=== PATIENT | female | born 1940 | race American Indian/Alaskan Native ===

== ENCOUNTER 2019-09-17 08:16 | Outpatient (CLI) | payer MEDICARE ==
--- NOTE | 2019-09-17 11:26 | Magnetic Resonance Report ---
BILATERAL BREAST MRI WITH AND WITHOUT CONTRAST CLINICAL INFORMATION/INDICATION: Left breast cancer. TECHNICAL: Coronal STIR, axial T1 and T2-weighted fat sat images were obtained precontrast. 18 cc Mul tiHance contrast was injected intravenously and serial axial T1 weighted images with fat saturation w ere obtained. 3-D MIP projections, kinetic analysis and subtraction imaging was utilized to evaluate. A dedicated 8-channel breast coil was used for image acquisition. COMPARISON: 07/28/2019, 07/21/2019 FINDINGS: Right breast: Scattered fibroglandular tissue is noted with moderate background parenchymal enhanceme nt. No mass, suspicious focus of enhancement, lymphadenopathy or other significant abnormality is see n. Left breast: Scattered fibroglandular tissue is noted with moderate background parenchymal enhancemen t. The previously biopsied mass in the 5:00 position measures 1.3 x 1.2 cm and is located 0.6 cm from the nearest lateral skin surface, 3.5 cm from the chest wall and approximately 5 cm from the nipple. No other suspicious mass or focus of enhancement is identified. No axillary nodes measuring greater than 1 cm in short axis dimension are identified. All of the visualized nodes have expected shape and appearance. Additional findings: No distinct metastatic disease. IMPRESSION: Previously biopsied left breast cancer as above without additional sites of malignancy in the left br east or in the right breast. Follow up recommendation: Surgical consult BI-RADS Category 6: Known Biopsy-Proven Malignancy. Signer Name: Alex Gay MD Signed: 09/17/2019 11:22 AM Workstation Name: [id number]
== END 2019-09-17 08:17 | disposition home or self-care (01) ==
LOC: SPVWC 08:16
PROVIDERS: ATTEND Surgery
DX: C50.512 Malignant neoplasm of lower-outer quadrant of left female breast (principal)
CPT/HCPCS: A9577; C8908; 77049

== ENCOUNTER 2019-10-02 10:35 | Outpatient (CLI) | payer MEDICARE | END 2019-10-02 10:36 | disposition home or self-care (01) | LOC: SPVWC 10:35 | PROVIDERS: ATTEND Internal Medicine Hematology & Oncology | DX: M81.0 Age-related osteoporosis without current pathological fracture (principal); C50.512 Malignant neoplasm of lower-outer quadrant of left female breast; E55.9 Vitamin D deficiency, unspecified | CPT/HCPCS: 77080 ==

== ENCOUNTER 2019-10-22 06:12 | Day surgery (SDC) | payer MEDICARE ==
[~2019-10-22 06:12] MED LIST: ceFAZolin/Water 2 GM/20 ML 2 GM/20 ML SYRINGE IV NR
[2019-10-22] MEDS ORDERED: propofoL 200 MG/20 ML VIAL IV ONE (07:23)
[2019-10-22] MEDS ORDERED: HYDROmorphone 1 MG/1 ML INJ ONE (07:23)
[2019-10-22] MEDS ORDERED: LIDOCAINE MPF (2%) 20 MG/1 ML VIAL 5 ML ONE (07:23)
[2019-10-22] MEDS ORDERED: LACTATED RINGERS 1,000 ML ONE (07:30)
[2019-10-22] MEDS ORDERED: BACTERIOSTATIC SODIUM CHLORIDE 0.9% 30 ML VIAL INFILTRATI ONE (07:30)
[2019-10-22] MEDS ORDERED: MAGNESIUM OXIDE 400 MG TAB PO NR (07:31)
[2019-10-22] MEDS ORDERED: ACETAMINOPHEN 325 MG TAB PO NR (07:31)
[2019-10-22] MEDS ORDERED: fentaNYL 100 MCG/2 ML INJ IV NR (07:31)
[2019-10-22] MEDS ORDERED: ONDANSETRON 4 MG/2 ML INJ IV PRN (07:31)
[2019-10-22] MEDS ORDERED: HYDROmorphone 1 MG/1 ML INJ IV PRN ×2 (07:31)
[2019-10-22] MEDS ORDERED: INSULIN REGULAR, HUMAN 100 UNIT/ML 3ML VIAL SUB-Q NR (07:34)
--- NOTE | 2019-10-22 07:34 | Anesthesia Day of Surgery ---
Anesthesia Day of Surgery - Day of Surgery Patient Examined: Yes Patient H&P Reviewed: Yes Patient is NPO: Yes
--- NOTE | 2019-10-22 07:36 | Anesthesia Consultation ---
Anesthesia Consult and Med Hx Date of service: 10/22/19 - Airway Anesthetic Teeth Evaluation: Dentures, Edentulous ROM Head & Neck: Adequate Mental/Hyoid Distance: Adequate Mallampati Class: Class II Intubation Access Assessment: Probably Good - Pre-Operative Health Status ASA Pre-Surgery Classification: ASA2 Proposed Anesthetic Plan: General Nerve Block: ES/PEC - Pulmonary Hx Smoking: Yes (QUIT OVER 10YRS AGO) Hx Respiratory Symptoms: No (+2FS) - Cardiovascular System Hx Hypertension: Yes (2009) - Central Nervous System Hx Neuromuscular Disorder: Yes (Neuropathy L hand) Hx Psychiatric Problems: No - Endocrine Hx Insulin Dependent Diabetes: Yes - Other Systems Hx Alcohol Use: No Hx Substance Use: No
[2019-10-22] MEDS ORDERED: BUPIVACAINE-EPINEPHRINE/PF 0.25%-1:200,000 (30 ML) VIAL INFILTRATI ONE (07:40)
[2019-10-22] MEDS ORDERED: INSULIN REGULAR, HUMAN 100 UNIT/ML 3ML VIAL ONE (07:42)
[2019-10-22] MEDS ORDERED: SODIUM CHLORIDE P/F VIAL 10 ML 10 ML ONE (07:46)
[2019-10-22] MEDS ORDERED: METHYLENE BLUE 50 MG/10 ML AMP ONE (07:46)
[2019-10-22] MEDS ORDERED: LACTATED RINGERS 1,000 ML IV SCH (08:00)
[2019-10-22] MEDS ORDERED: CELECOXIB 200 MG CAP PO NR (08:00)
[2019-10-22] MEDS ORDERED: MIDAZOLAM 2 MG/2 ML INJ IV NR (08:00)
[2019-10-22] MEDS ORDERED: WATER FOR IRRIG STERILE 1,500 ML BOTTLE IR ONE (09:21)
[2019-10-22] MEDS ORDERED: ONDANSETRON 4 MG/2 ML INJ ONE (10:18)
--- NOTE | 2019-10-22 10:41 | Operative Report ---
Operative Report Operative Report: Operative Report: October 22, 2019 Preoperative diagnosis: Left breast cancer of the lower outer quadrant Postoperative diagnosis: Same Procedure: Left needle localization partial mastectomy of the lower outer quadrant and SLNB Surgeon: Maria Elena Newman MD Anesthesia: General Findings: Left breast mass and clip present within radiograph specimen; x2 SLNs Complications: None EBL: Minimal Disposition: PACU in good condition Indications for operative procedure: This is a 79 year old lady with newly diagnosed left breast cancer of the lower outer quadrant, Stage I [id number] ER/NV positive (left breast mass 5:00 position 5 cm from the nipple). Recommendations are to proceed with breast conservation. She understands the role of adjuvant radiation therapy and Oncotype DX will be obtained by medical oncology. She wished to proceed with the above procedure. Procedure in detail: Anesthesia placed left pectoral block. Patient was then taken to the operating room. Gen. anesthesia was administered. The left nipple was injected with radioisotope. Left breast and axilla were prepped and draped in the normal sterile operative fashion. Ultrasound was used to corinne the area of cancer at 5:00 position 5 cm FN with irregular hypoechoic mass present. Timeout was performed. Gamma probe was inserted into the axilla. The area of hot spot was identified. A left axillary incision was made with a 15 blade knife with dissection taken down to the subcutaneous tissues. The axillary fascia was opened with the Bovie cautery. 2 SLNs were identified. All remaining counts were less than 10% of the highest count. Lymph node was sent to pathology for permanent processing. Hemostasis was obtained in the left axillary cavity. Axillary cavity was appropriately irrigated and suctioned. Hemostasis was noted. Axillary fascia was approximated and closed using interrupted 3-0 Vicryl and the skin brought together and closed using a running 4-0 Monocryl followed by skin affix. Attention was then taken towards the left breast. Known left breast cancer 5:00 position 5 cm FN. A 6:00 breast incision was made with a 15 blade knife and dissection taken down to subcutaneous tissues. First began raising of the superior flap with with dissection take down to the pectoralis muscle, followed by raising of the inferior flap, medial flap and lateral flap with all flaps taken down to the pectoralis muscle. The breast area of concern was appropriately removed posteriorly from the pectoralis muscle with the aid of the Bovie cautery. Specimen was marked and then sent to pathology and radiology; radiograph specimen with mass and clip present. Breast cavity was irrigated and hemostasis was obtained. The posterior deep breast tissues were approximated and closed using interrupted 3-0 Vicryl. The subcutaneous tissues were approximated and closed using interrupted 3-0 Vicryl followed by closing of the skin with a running 4-0 Monocryl and skin affix. The patient tolerated surgery very well and she was awaken from anesthesia without any complication and transported to PACU in good condition.
--- NOTE | 2019-10-22 10:44 | Short Stay Summary ---
Short Stay Documentation Date of service: 10/22/19 - History H&P: obtained from office - Allergies and Medications Current Medications: Allergies codeine Adverse Reaction (Verified 10/14/19 09:58) Dizziness Home Medications Medication Instructions Recorded Confirmed Last Taken Type Insulin Aspart Protam & Aspart 45 unit SQ BID 10/14/19 10/22/19 10/21/19 08:00 History [NovoLOG Mix 70-30 Flexpen] amLODIPine [Norvasc] 10 mg PO DAILY 10/14/19 10/22/19 10/21/19 08:00 History hydroCHLOROthiazide [HCTZ] 25 mg PO QDAY 10/14/19 10/22/19 10/21/19 08:00 History lisinopriL [Zestril TAB] 40 mg PO QDAY 10/14/19 10/22/19 10/22/19 05:00 History traMADoL [Ultram 50 MG tab] 50 mg PO Q6HR PRN #20 tablet 10/22/19 Unknown Rx Active Medications Acetaminophen (Tylenol) 650 mg PO ONCE NR Stop: 10/22/19 12:00 Last Admin: 10/22/19 07:45 Dose: 650 mg Documented by: Celecoxib (Celebrex) 200 mg PO PREOP NR Stop: 10/22/19 12:00 Last Admin: 10/22/19 07:45 Dose: 200 mg Documented by: Fentanyl (Sublimaze) 100 mcg IV ONCE NR Stop: 10/22/19 12:00 Last Admin: 10/22/19 07:49 Dose: 100 mcg Documented by: Hydromorphone HCl (Dilaudid) 0.25 mg IV Q10MIN PRN PRN Reason: Pain, Moderate (4-6) Stop: 10/22/19 23:00 Hydromorphone HCl (Dilaudid) 0.5 mg IV Q10MIN PRN PRN Reason: Pain , Severe (7-10) Stop: 10/22/19 23:00 Cefazolin Sodium (Ancef/Sterile Water 2 Gm/20 Ml) 2 gm in 20 mls @ 80 mls/hr IV PREOP NR; Protocol Stop: 10/22/19 23:00 Lactated Ringer's (Lactated Ringers) 1,000 mls @ 100 mls/hr IV DIRECT KRISTIE Last Admin: 10/22/19 07:30 Dose: 100 mls/hr Documented by: Magnesium Oxide (Mag-Ox) 400 mg PO ONCE NR Stop: 10/22/19 13:00 Last Admin: 10/22/19 07:45 Dose: 400 mg Documented by: Midazolam HCl (Versed) 2 mg IV PREOP NR Stop: 10/22/19 23:59 Last Admin: 10/22/19 07:49 Dose: 2 mg Documented by: Ondansetron HCl (Zofran) 4 mg IV ONCE PRN PRN Reason: Nausea And Vomiting Stop: 10/22/19 13:00 - Brief post op/procedure progress note Date of procedure: 10/22/19 Pre-op diagnosis: Left breast cancer lower outer quadrant Post-op diagnosis: same Procedure: Left partial mastectomy with SLNB Anesthesia: GETA Findings: Left mass and clip present; x2 SLN Surgeon: ALPHONSO TAPIA Estimated blood loss: minimal Pathology: list (left partial mastectomy; x2 sln) Specimen disposition: to lab Condition: stable - Disposition Condition at discharge: Good Disposition: DC-01 TO HOME OR SELFCARE Short Stay Discharge Plan Activity: other (no heavy lifting) Diet: regular Wound: keep clean and dry (wear breast binder; may shower in 48 hours; no baths, pools or lakes; do not rub or scrub incision) Follow up with: ALPHONSO TAPIA MD [Staff Physician] - 7 Days Prescriptions: traMADoL [Ultram 50 MG tab] 50 mg PO Q6HR PRN #20 tablet PRN Reason: Pain
[2019-10-22] MEDS ORDERED: INSULIN REGULAR, HUMAN 100 UNIT/ML 3ML VIAL IV ONE (10:45)
[2019-10-22] MEDS ORDERED: INSULIN REGULAR, HUMAN 100 UNITS/1 ML ONE ×7 (11:00)
[2019-10-22] MEDS ORDERED: INSULIN REGULAR, HUMAN 100 UNIT/ML 3ML VIAL IV NR (12:02)
[2019-10-22 14:11] VITALS: BP 139/60
--- NOTE | 2019-10-22 14:36 | Post Anesthesia Evaluation ---
- Post Anesthesia Evaluation Patient Participated: Yes Airway Patent: Yes Stable Respiratory Function: Yes Nausea/Vomiting: No Temp > 96.8F: Yes Pain Manageable: Yes Adequeate Hydration: Yes Anesthesia Complications: No Block Receding Appropriately: Yes Patient on Ventilator: No
--- NOTE | 2019-10-22 18:07 | Mammography Report ---
BREAST SPECIMEN RADIOGRAPH HISTORY: Lumpectomy FINDINGS/IMPRESSION: The submitted radiograph or radiographs demonstrate(s) the presence of a biopsy marker and spiculated mass. Signer Name: Priscila Medrano MD Signed: 10/22/2019 6:02 PM Workstation Name: [id number]
== END 2019-10-22 14:25 | disposition home or self-care (01) ==
LOC: OR 06:12
PROVIDERS: ATTEND Surgery
DX: C50.512 Malignant neoplasm of lower-outer quadrant of left female breast (principal); Z20.828 Contact with and (suspected) exposure to other viral communicable diseases; H40.9 Unspecified glaucoma; G62.9 Polyneuropathy, unspecified; I10 Essential (primary) hypertension; E11.36 Type 2 diabetes mellitus with diabetic cataract; E11.42 Type 2 diabetes mellitus with diabetic polyneuropathy; Z80.3 Family history of malignant neoplasm of breast; Z88.5 Allergy status to narcotic agent; Z87.891 Personal history of nicotine dependence; Z79.4 Long term (current) use of insulin; Z98.41 Cataract extraction status, right eye; Z98.42 Cataract extraction status, left eye; Z98.51 Tubal ligation status; Z98.890 Other specified postprocedural states
CPT/HCPCS: 19301; 38525; 38792; 64450; 76098; 78800; 82962; 88307; 88333; A9541; J0690; J1170; J2250; J2405; J2704; J3010; J7120; Q9968; U0003; J1815

== ENCOUNTER 2020-05-11 09:27 | Outpatient (CLI) | payer MEDICARE ==
--- NOTE | 2020-05-11 10:10 | Mammography Report ---
DIGITAL DIAGNOSTIC MAMMOGRAM WITH CAD CONVENTIONAL, 05/11/2020 CLINICAL INFORMATION / INDICATION: PERSONAL HX OF BREAST CA Z85.3 TECHNIQUE: Digital left mammographic imaging was performed. This examination was interpreted with the benefit of Computer-aided Detection analysis. COMPARISON: 10/22/2019, 07/28/2019 FINDINGS: Breast Density: The breast is heterogeneously dense, which may obscure small masses. No dominant mass, suspicious calcifications or architectural distortion in the left breast. There are expected postoperative changes with benign-appearing calcifications. IMPRESSION: No mammographic evidence of malignancy. Follow up recommendation: Back to schedule. BI-RADS Category 2: Benign. A "normal" or negative report should not discourage follow up or biopsy of a clinically significant f inding. A written summary of these findings will be mailed to the patient. The patient will be entered into a mammography reporting system which will generate a reminder letter for the patient's next appointmen t at the appropriate interval. According to the [employer], yearly mammograms are recommended starting at age 40 and continuing as long as a woman is in good health. Breast MRI is recommended for women with an millie roximately 20-25% or greater lifetime risk of breast cancer, including women with a strong family his tory of breast or ovarian cancer and women who have been treated for Hodgkin's disease. Signer Name: Alex Gay MD Signed: 05/11/2020 10:00 AM Workstation Name: [email or web address]
== END 2020-05-11 09:28 | disposition home or self-care (01) ==
LOC: SPVWC 09:27
PROVIDERS: ATTEND Surgery
DX: R92.8 Other abnormal and inconclusive findings on diagnostic imaging of breast (principal); Z85.3 Personal history of malignant neoplasm of breast

== ENCOUNTER 2020-07-29 09:20 | Outpatient (CLI) | payer MEDICARE ==
--- NOTE | 2020-07-29 11:36 | Mammography Report ---
DIGITAL SCREENING MAMMOGRAM WITH CAD, 07/29/2020 CLINICAL INFORMATION / INDICATION: Routine screening mammography. SCREENING MAMMO. Left lumpectomy. TECHNIQUE: Digital bilateral 2D mammography was obtained in the craniocaudal and mediolateral obliqu e projections. This examination was interpreted with the benefit of Computer-Aided Detection analysis . COMPARISON: Screening mammogram dated 07/21/19. Diagnostic mammogram dated 05/11/20 FINDINGS: Breast Density: The breasts are heterogeneously dense, which may obscure small masses. No dominant mass, suspicious calcifications, or architectural distortion in either breast. Left breast postoperative findings after lumpectomy with ovoid nodule at 5:00 posterior depth possibl y representing postoperative seroma. This ovoid nodular density is more prominent than on diagnostic mammogram from 05/11/20. IMPRESSION: Increased prominence of left breast ovoid nodular density which possibly represents posto perative seroma. Ultrasound left breast is recommended for confirmation. Follow up recommendation: Ultrasound BI-RADS Category 0: Incomplete. Needs additional imaging evaluation and/or prior mammograms for margie gutiérrez. A "normal" or negative report should not discourage follow up or biopsy of a clinically significant f inding. A written summary of these findings will be mailed to the patient. The patient will be entered into a mammography reporting system which will generate a reminder letter for the patient's next appointmen t at the appropriate interval. The [employer] recommends yearly mammograms starting at age 40 and continuing as l joel as a woman is in good health. Breast MRI is recommended for women with an approximate 20-25% or greater lifetime risk of breast cancer, including women with a strong family history of breast or ova bia cancer or who have been treated for Hodgkin's disease. Signer Name: Rebecca Jeff MD Signed: 07/29/2020 11:32 AM Workstation Name: [email or web address]
== END 2020-07-29 09:21 | disposition home or self-care (01) ==
LOC: SPVWC 09:20
PROVIDERS: ATTEND Surgery
DX: Z12.31 Encounter for screening mammogram for malignant neoplasm of breast (principal); N64.89 Other specified disorders of breast; Z90.12 Acquired absence of left breast and nipple
CPT/HCPCS: 77067

== ENCOUNTER 2020-08-11 09:16 | Outpatient (CLI) | payer MEDICARE ==
--- NOTE | 2020-08-11 11:16 | Ultrasound Report ---
ULTRASOUND BREAST LEFT LIMITED, 08/11/2020 CLINICAL INFORMATION / INDICATION: ABNORMAL MAMMO R92.8. History of left lumpectomy for breast carcin kin October 2019 TECHNIQUE: Targeted ultrasound evaluation was performed of the area of interest. COMPARISON: Recent mammograms including 07/29/2020 and 05/11/2020. FINDINGS: Sonographic evaluation of the lower outer left breast demonstrates a oblong fluid collection, consist ent with postoperative seroma, in the lumpectomy site at 5:00. No suspicious solid component is noted . This does correlate with mammographic finding of increased density. IMPRESSION: Postoperative seroma in the left breast at 5:00 measuring approximately 4.5 x 1.5 cm. No sonographic evidence of malignancy. Follow up recommendation: Routine yearly BI-RADS Category 2: Benign. A normal or "negative" report should not preclude biopsy or follow-up of a clinically suspicious find ing. Signer Name: Priscila Medrano MD Signed: 08/11/2020 11:11 AM Workstation Name: [email or web address]
== END 2020-08-11 09:17 | disposition home or self-care (01) ==
LOC: SPVWC 09:16
PROVIDERS: ATTEND Surgery
DX: R92.8 Other abnormal and inconclusive findings on diagnostic imaging of breast (principal); N64.89 Other specified disorders of breast